=== PATIENT | female | born 1990 | race Two or more races ===

== ENCOUNTER 2024-04-19 23:39 | Emergency (ER) | payer MEDICAID, SELFPAY ==
[2024-04-20 00:04] VITALS: BP 102/69; PULSE 98; RESP 16; TEMP 36.7; O2SAT 97; BMI 20.2
[2024-04-20] MEDS: ONDANSETRON ODT 4 MG TABRAP PO (00:32)
--- NOTE | 2024-04-20 00:40 | PD.EDNV ---
Nausea/Vomit./Diarrhea-RME/HPI General Chief complaint: Abdominal Pain Stated complaint: ABD PAIN,N/V/D Time Seen by Provider: 04/20/24 00:13 Arrival date/time: 04/19/24 23:39 33F with history of asthma presents to ED with 2 days of non-bloody N/V, epigastric pain, and non-bloody diarrhea that started after she ate dinner yesterday. Limitations: no limitations Related Data Home Medications ?Medication ?Instructions ?Recorded ?Confirmed vits no.124-ferrous fum 1 tab PO QDAY 09/01/22 12/20/22 27 mg iron-folic acid 800 mcg tablet ( Vitamin) Previous Rx's ?Medication ?Instructions ?Recorded ondansetron 4 mg disintegrating 4 mg PO Q8H PRN nausea and 04/20/24 tablet vomiting #30 tabs Allergies Allergy/AdvReac Type Severity Reaction Status Date / Time No Known Allergies Allergy Verified 04/19/24 23:40 Review of Systems Review of Systems Systems Reviewed: All systems reviewed, normal except as documented Constitutional Constitutional: Reports system reviewed and no additional complaints, except as documented, Denies fever(s) and Denies headache(s) ENT Ears, Nose, Mouth, and Throat: Denies disequilibrium and Denies headache(s) Cardiovascular Cardiovascular: Reports system reviewed and no additional complaints, except as documented, Denies chest pain and Denies dyspnea Respiratory Respiratory: Reports system reviewed and no additional complaints, except as documented, Denies cough and Denies dyspnea Gastrointestinal Gastrointestinal: Reports system reviewed and no additional complaints, except as documented, Reports as per HPI, Reports abdominal pain, Reports diarrhea, Reports nausea and Reports vomiting Neurologic Neurologic: Reports system reviewed and no additional complaints, except as documented, Denies confusion, Denies disequilibrium and Denies headache(s) Psychiatric Psychiatric: Denies confusion Past Medical History Past Medical History NEUROLOGIC: Negative Neurological Disorders or Seizures CARDIAC: Negative Cardiac Disorders or Congestive Heart Failure RESPIRATORY: Positive Asthma; Negative Chronic Obstructive Pulmonary Disease (COPD) GASTROINTESTINAL: Positive Gastrointestinal Disorders, Ulcer and Gastroesophageal Reflux Disease; Negative Hepatitis or Colorectal Cancer GENITOURINARY: Negative Genitourinary Disorders, Renal Disease or Prostate Cancer REPRODUCTIVE: Positive Previous Pregnancies; Negative Breast Cancer, Endometriosis, Genital Herpes, Gonorrhea, Pelvic Inflammatory Disease, Syphilis, Testicular Cancer or Uterine Prolapse MUSCULOSKELETAL: Negative Musculoskeletal Disorders, Bone Cancer or Carpal Tunnel Syndrome ENDOCRINE: Positive Endocrine Disorders, Hyperthyroidism (NO CURRENT MEDS) and Hypothyroidism; Negative Diabetes Mellitus Type 1 or Diabetes Mellitus Type 2 HEMATOLOGIC: Positive Anemia; Negative Blood Disorders PSYCHO/SOCIAL: Negative Depression, Anxiety or Depression OTHER HISTORY: Negative Autoimmune Disease, Down Syndrome, Developmental Delay, Shingles, Falls, Blood Transfusions, Blood Transfusion Reaction, Anesthesia Reactions, Organ Transplant, Chemotherapy, Radiation Therapy, Hyperbaric Therapy, MRSA, VRSA, Vancomycin-Resistant Enterococci, Human Immunodeficiency Virus (HIV), Chicken Pox, Measles, Mumps, Rubella ([place] Measles), Pertussis, Clostridium Difficile, Breast Cancer, Cervical Cancer, Colorectal Cancer, Lung Cancer, Ovarian Cancer, Prostate Cancer or Testicular Cancer Family History FAMILY HISTORY: Negative Family Psychiatric Problems, Family Respiratory Disorders, Family Cardiac Disorders, Family Gastrointestinal Problems, Family Cancer, Family Surgery or Family Anesthesia Reaction Surgical History SURGICAL: Positive Ear Surgery and Nose Surgery; Negative Cardiac Surgery, Endocrine Surgery, Abdominal Surgery, Nephrectomy, Transurethral Resection, Joint Replacement, Amputation, Open Reduction Internal Fixation, Arthroscopy, Neurologic Surgery, Mastectomy, Lumpectomy, Hysterectomy, Tubal Ligation, Section, Vasectomy or Organ Transplant Social History SMOKING STATUS: Never smoker SECOND HAND EXPOSURE: No ED Exam General Limitations: Present no limitations General appearance: Present alert and in no apparent distress Head Head exam: Present atraumatic Eye Eye exam: Present normal appearance, PERRL and EOMI ENT ENT exam: Present normal exam, normal oropharynx and mucous membranes moist Neck Neck exam: Present normal inspection, full ROM and trachea midline Chest Chest inspection: Present normal inspection and symmetric chest wall rise Respiratory Respiratory exam: Present normal lung sounds bilaterally Cardiovascular Cardiovascular exam: Present regular rate, normal rhythm and normal heart sounds Abdominal Exam Abdominal exam: Present soft and normal bowel sounds Abdominal tenderness: Present epigastrium and mild Extremities Exam Extremities exam: Present normal inspection and full ROM Back Exam Back exam: Present normal inspection and full ROM Neurological Exam Neurological exam: Present alert, oriented X3 and CN II-XII intact Psychiatric Psychiatric exam: Present normal affect and normal mood Skin Skin exam: Present warm, dry, intact and normal color Course Quality Measures none Orders Category Date Time Status Acetaminophen Tab [Tylenol ES Tab] Med 04/20/24 00:14 Discontinued 500 mg PO X1 ONE Famotidine [Pepcid] Med 04/20/24 00:14 Discontinued 40 mg PO X1 ONE Ondansetron Odt [Zofran Odt] Med 04/20/24 00:14 Discontinued 4 mg PO X1 ONE mg Hyd/Al Hyd/Naldo Susp [Maalox Susp] Med 04/20/24 00:14 Discontinued 30 ml PO X1 ONE Vital Signs Vital signs: Vital Signs Temperature 98.1 F 04/20/24 00:04 Pulse Rate 98 04/20/24 00:04 Respiratory Rate 16 04/20/24 00:04 Blood Pressure 102/69 04/20/24 00:04 Pulse Oximetry (%) 97 04/20/24 00:04 Oxygen Delivery Method Room Air 04/20/24 00:04 O2 at 97% on RA and WNLs Nausea/Vomiting/Diarrhea MDM Narrative MDM Narrative:: 33F with history of asthma presents to ED with 2 days of non-bloody N/V, epigastric pain, and non-bloody diarrhea that started after she ate dinner yesterday. Physical exam reveals mild epigastic tenderness. Patient is afebrile, calm, and alert. Likely food poisoning vs viral gastroenteritis. PO challenge passed. Patient data External records reviewed:: [facility] previous records Clinical information provided by:: patient Social determinants that could affect healthcare access:: none Patient has the following chronic illnesses:: asthma How is presenting disease/condition affected by chronic disease/condition?: uneffected by Evaluation data The following diagnostics were reviewed and interpreted by me:: other (specify) (none) Lab and/or radiology exams considered but not ordered:: not ordered Interpretation Summary: n/a Medications / Prescriptions Medications / Prescriptions considered but not ordered:: ordered Medication administrations:: Medication Administration History Discontinued Medications Acetaminophen (Acetaminophen 500 Mg Tablet) 500 mg PO X1 ONE Stop: 04/20/24 00:15 Last Admin: 04/20/24 01:02 Dose: 500 mg Documented By: SALMA Al Hydrox/Mg Hydrox/Simethicone (Mg Hyd/Al Hyd/Naldo (Maalox Reg) Susp 30 Ml Udc) 30 ml PO X1 ONE Stop: 04/20/24 00:15 Last Admin: 04/20/24 01:02 Dose: 30 ml Documented By: SALMA Famotidine (Famotidine 20 Mg Tablet) 40 mg PO X1 ONE Stop: 04/20/24 00:15 Last Admin: 04/20/24 01:03 Dose: 40 mg Documented By: SALMA Comments: medication not scanning, double verified medication with magi cabrera. Ondansetron HCl (Ondansetron Odt 4 Mg Tabrap) 4 mg PO X1 ONE; Protocol Stop: 04/20/24 00:15 Last Admin: 04/20/24 00:32 Dose: 4 mg Documented By: SALMA above Consultations Consultation(s) initiated? (list below): No Diagnosis Nausea Differential Diagnosis: traveler's diarrhea, food poisoning, gastroenteritis, clostridium difficile infection, drug-induced nausea and vomiting and dehydration Most likely diagnosis given after review of the tests above:: food poisoning Admission Indicated Admission indicated?: not indicated Admission Request Was there a request for admission?: No Disposition Plan Disposition Plan: Discharge Discharge Attestation Discharge Attestation: The patient and all family members were given an opportunity to ask questions and understood the discharge instructions. Discharge instructions specifically effects, indications for sooner follow up or return to the emergency department, and the expected course of current diagnosis. Patient condition: Stable Discharge Plan Plan Patient Disposition: HOME (Self Care) Disposition Comment: Stable Prescriptions/Referrals Prescriptions/Med Rec: New ondansetron 4 mg tablet,disintegrating 4 mg PO Q8H PRN (Reason: nausea and vomiting) Qty: 30 0RF No Action Vitamin 27 mg iron- 800 mcg Tablet 1 tab PO QDAY Problem List Clinical Impression: Food poisoning Patient/Caregiver Discharge Instructions Education Materials: ED Food Poisoning (Adult) Additional Instructions: Please follow-up with PCP within 24-48 hours and return immediately if symptoms worsen. Keep hydrated. Advance diet as tolerated. Print Language: Kyrgyz Stand Alone Forms: Patient Portal Info Letter YUAN/CE[facility] Supervising Physician TISHA Supervising Physician: Dr. Nair
[2024-04-20] MEDS: ACETAMINOPHEN 500 MG TABLET PO (01:02)
[2024-04-20] MEDS: MG HYD/AL HYD/SIME (Maalox Reg) SUSP 30 ML UDC PO (01:02)
[2024-04-20] MEDS: FAMOTIDINE 20 MG TABLET 40 MG PO (01:03)
[2024-04-20 01:37] VITALS: BP 95/68; PULSE 95; RESP 17; TEMP 37; O2SAT 98
== END 2024-04-20 01:40 | disposition home or self-care (01) ==
LOC: SERX 04-20 01:26
PROVIDERS: Emergency Provider Emergency Medicine; PCP Family Medicine
DX: A05.9 Bacterial foodborne intoxication, unspecified (principal)
CPT/HCPCS: 99282; Q0162; A9270

== ENCOUNTER 2024-11-28 10:34 | Outpatient (AMB) | payer MEDICAID, SELFPAY ==
[2024-11-28 10:52] VITALS: BP 104/70; PULSE 83; RESP 16; TEMP 36.8; O2SAT 98; BMI 19.7
--- NOTE | 2024-11-28 10:52 | OBCLNT_ITS ---
Vital Signs 11/28/24 10:52 Height 1.68 m Height Method Stated Weight 55.565 kg Weight Measurement Method Standing Scale BMI 19.7 BP 104/70 Blood Pressure Source Automatic Cuff Blood Pressure Location Left Upper Arm Position Sitting Respiration 16 Pulse 83 Pulse Source Monitor Temp 98.2 F Temp Source Oral Pulse Oximetry (%) 98 Oxygen Delivery Method Room Air Allergies/Home Meds Allergies & Medications Allergies No Known Allergies Allergy (Verified 11/28/24 10:53) Medication Reconciliation vits no.124-ferrous fum 27 mg iron-folic acid 800 mcg tablet ( Vitamin) 1 tab PO QDAY 09/01/22 [History Confirmed 11/28/24] ondansetron 4 mg disintegrating tablet 4 mg PO Q8H PRN nausea and vomiting #30 tabs 04/20/24 [Rx Confirmed 11/28/24] doxylamine 10 mg-pyridoxine (vit B6) 10 mg tablet,delayed release (Diclegis) 1 tab PO BID 30 days #60 tabs 11/28/24 [Rx] Intake Visit Data Collection New Patient or Established: Established Patient (seen at [facility] within 3 years) Reason for Visit:: OBC Seen by Clinical Staff ONLY (RN/MA): No Activity Coordinator Required: No Do You Feel Safe at Home: Yes Authorities Contacted: N/A PCP or OBGYN visit in last 3 months: Yes Date of Last PCP or OBGYN visit: 04/20/24 Hx Now: No Are you currently on any form of Control: No Last menstrual period: 10/11/24 Pain Present Currently: No Pain Scale Used: Ortiz-Walden/Numerical Pain scale:: 0 Smoking Status Smoking Status: Never smoker Questionnaires Covid-19 Vaccine Questionnaire Has patient been vacinated for Covid-19 Have you been vacinated for Covid-19: Yes PHQ-9 PHQ-2 Over the last 2 weeks, how often have you been bothered by any of the following problems? 1. Little interest or pleasure in doing things: not at all 2. Feeling down, depressed, or hopeless: not at all Total score: 0 PHQ-9 3. Trouble falling or staying asleep, or sleeping too much: Not at all 4. Feeling tired or having little energy: Not at all 5. Poor appetite or overeating: Not at all 6. Feeling bad about yourself - or that you are a failure or have let yourself or your family down: Not at all 7. Trouble concentrating on things, such as reading the newspaper or watching television: Not at all 8. Moving or speaking so slowly that other people could have noticed? - Or the opposite - being so fidgety or restless that you have been moving around a lot more than usual: not at all 9. Thoughts that you would be better off or of hurting yourself in some way: Not at all Total score: 0 If you checked off any problems, how difficult have these problems made it for you to do your work, take care of things at home, or get along with other people?: not difficult at all Source: Developed by Drs. Lauri Wilkins, Key Kumar, Mejia Magana and colleagues, with an educational renard from [employer]. Depression screen completed yes Social History Living Situation History Marital Status: Lives With: Family Housing: House Tobacco History Smoking Status: Never smoker Second Hand Smoke Exposure: No Alcohol History Alcohol Intake: Never Domestic Abuse History Do You Feel Safe at Home: Yes History of Present Illness HPI Narrative 34-year-old 4 para 3 for OBI. Last period October 11, 2024. This gives a due date July 18, 2025. Patient reports sure dates. She states her periods are usually every month. Patient denies social habits. Denies surgery. Denies chronic illness. Her last Pap 2 years ago. Patient denies allergies. She is happy about the . Denies any signs or symptoms of miscarriage. 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 Patient does complain of some nausea and she like some medication for that. 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: Past Medical History Past Medical History: No Hx Neurological Disorders, Yes Hx Hypothyroidism, Yes Hx Hyperthyroidism (NO CURRENT MEDS), No Hx Breast Cancer, No Hx Cardiac Disorders, No Hx Blood Disorders, Yes Hx Anemia, Yes Hx Gastrointestinal Disorders, No Hx Renal Disease, No Hx Diabetes Mellitus Type 1, No Hx Diabetes Mellitus Type 2, No Hx Tubal Ligation and No Hx Hysterectomy OB Initial Visit OB Flowsheet OB Flowsheet Initial Weight: Not Recorded Date -?-?-?-?-?-?-?-?-?-?-?-?- EGA Weight BP Alb Glu CTX Pres Fundal ht FHR Mov Dilation Station Effacement Hx Notes Visit Note 11/28/24 -?-?-?-?-?-?-?-?-?-?-?-?- 6w 6d 55.565 kg 104/70 absent unknown 7 ab sent Renuka is a 36-year-old 4 para 3 for OBI. Her last period October 11, 2024. An estimated due date based on that is July 18, 2025. Patient denies complaints of miscarriage. Denies any bleeding, cramping, leaking. She does have increased complaints of nausea. And last Pap 2 years ago Schedule ultrasound at [facility] for viability. Discussed comfort measures for increased nausea. I gave patient a prescription for Diclegis to be taken twice a day. Discussed SAB precautions. We did an OB panel and A1c today. And then patient is to return in 3 weeks for OB check Menstrual History Menstrual reliability: definite Flow: normal Menstrual regularity: regular Monthly: Yes Age at menarche: 17 On control pills at conception: No OB History : 4 Para: 4 Hx # Pregnancies: 0 Hx Total # of Abortions (Spontaneous & Elective): 0 # of Living Children: 3 Delivery History 1st : Child's name: NA date: 01/16/15 sex: male Delivery type: vaginal History of depression before or after : No 2nd : Child's name: NA date: 05/03/17 sex: male Delivery type: vaginal History of depression before or after : No 3rd : Child's name: NA date: 12/21/22 sex: male Delivery type: vaginal Infection History & Risk Evaluation History of STDs: none HIV risk evaluation: low risk Hepatitis B risk evaluation: low risk Patient or partner has history of Genital Herpes: No Varicella/chicken pox status: immunized Genetic Screening & History Genetic Screening/Teratology Counseling - Includes patient, baby's father, or anyone in either family with: 1. Patient's age 35 years or older as of estimated date of delivery: No 2. Thalassemia (Norwegian, Haitian, Mediterranean, or Background); MCV less than 80: No 3. Neural Tube Defect (Meningomyelocele, Spina Bifida, or Anencephaly): No 4. Congenital Heart Defect: No 5. Down Syndrome: No 6. Julio Cesar-Sachs (Ashkenazi Jehovah'S Witness, C[place]un, [place]): No 7. [place] Disease (Ashkenazi Jehovah'S Witness): No 8. Familial Dysautonomia (Ashkenazi Jehovah'S Witness): No 9. Sickle Cell Disease or Trait (): No 10. Hemophilia or other blood disorders: No 11. Muscular Dystrophy: No 12. Cystic Fibrosis: No 13. [place]'s Chorea: No 14. Mental Retardation/Autism: No 15. Other inherited genetic or chromosomal disorder: No 16. Maternal Metabolic Disorder (EG,TYPE 1 Diabetes, PKU): No 17. Patient or baby's father had a child with defects not listed above: No 18. Recurrent loss or a stillbirth: No 19. Medications (including supplements, vitamins, herbs or otc drugs)/illicit/recreational drugs/alcohol since last menstrual period: No 20. Any other: No Infection History 1. Live with someone with TB or exposed to TB: No 2. Rash or viral illness since last menstrual period: No 3. Hepatitis B,C: No Other (see comments) Source: [employer] Review of Systems Review of Systems Systems Reviewed: All systems reviewed, normal except as documented Exam General Limitations: no limitations General Appearance: alert, in no apparent distress, comfortable, cooperative, healthy appearing, well developed and well groomed Head Head exam: atraumatic, normocephalic and normal inspection Neck Neck exam: Present normal inspection, full ROM and trachea midline Chest Chest inspection: Present normal inspection and symmetric chest wall rise Resp Respiratory exam: Present normal lung sounds bilaterally Card Cardiovascular exam: Present regular rate, normal rhythm and normal heart sounds Abdominal Abdominal exam: Present soft and normal bowel sounds Psych Psychiatric exam: Present normal affect and normal mood Office Procedures OBC Clinic LOC & Office Proc's Nursing/Assessment Patient Status: Established Patient OB Clinic Nursing Assessment: Medication Reconciliation, Update PMH in EMR and Vital Signs OB Clinic Coordination of Care: Education Complex Pt/Fam, Consent,records obtained, informed consent, Lab and Imaging orders, Results/Orders obtained and Staff clarify orders Special Needs: Heart tones Established Patient Charge Established Patient Point Assignment: 115 Established Patient Point Charge: EP Level 3 (80-115) Assessment & Plan Diagnosis / Problem List (1) Encounter for supervision of high risk in first trimester, antepartum: Status: Acute Plan Diclegis to take twice a day. Discussed comfort measures for nausea and vomiting. I discussed SAB precautions. OB panel with hemoglobin A1c today. And we ordered ultrasound at [facility] for dating and viability. Return in 3 weeks for OB check and NIPT Additional Plan Follow Up: 3 Weeks (obc)
== END 2024-11-28 11:17 | disposition home or self-care (01) ==
LOC: HODSOBC 10:34
PROVIDERS: Supervising Provider Advanced Practice Midwife; Visit Provider Advanced Practice Midwife
DX: O09.91 Supervision of high risk pregnancy, unspecified, first trimester (principal); Z3A.01 Less than 8 weeks gestation of pregnancy
CPT/HCPCS: 99213; G0463

== ENCOUNTER 2024-12-19 11:05 | Outpatient (AMB) | payer MEDICAID, SELFPAY ==
--- NOTE | 2024-12-19 11:24 | OBCLNT_ITS ---
Vital Signs 12/19/24 11:30 Height 1.68 m Height Method Stated Weight 57.323 kg Weight Measurement Method Standing Scale BMI 20.2 BP 102/62 Blood Pressure Source Automatic Cuff Blood Pressure Location Right Upper Arm Position Sitting Respiration 16 Pulse 70 Pulse Source Monitor Temp 98.2 F Temp Source Temporal Artery Scan Pulse Oximetry (%) 98 Oxygen Delivery Method Room Air Allergies/Home Meds Allergies & Medications Allergies No Known Allergies Allergy (Verified 12/19/24 11:31) Medication Reconciliation vits no.124-ferrous fum 27 mg iron-folic acid 800 mcg tablet ( Vitamin) 1 tab PO QDAY 09/01/22 [History Confirmed 12/19/24] ondansetron 4 mg disintegrating tablet 4 mg PO Q8H PRN nausea and vomiting #30 tabs 04/20/24 [Rx Confirmed 12/19/24] doxylamine 10 mg-pyridoxine (vit B6) 10 mg tablet,delayed release (Diclegis) 1 tab PO BID 30 days #60 tabs 11/28/24 [Rx Confirmed 12/19/24] nitrofurantoin monohydrate/macrocrystals 100 mg capsule (Macrobid) 100 mg PO BID 7 days #14 caps 12/19/24 [Rx] Intake Visit Data Collection New Patient or Established: Established Patient (seen at [facility] within 3 years) Reason for Visit:: OBC Seen by Clinical Staff ONLY (RN/MA): No Clinical Material Handler Required: No Do You Feel Safe at Home: Yes Authorities Contacted: N/A PCP or OBGYN visit in last 3 months: Yes Date of Last PCP or OBGYN visit: 11/28/24 Hx Now: Yes Are you currently on any form of Control: No Pain Present Currently: No Pain Scale Used: Ortiz-Walden/Numerical Pain scale:: 0 Smoking Status Smoking Status: Never smoker Immunizations Flu Vaccine in the Last 12 Months: No Questionnaires Covid-19 Vaccine Questionnaire Has patient been vacinated for Covid-19 Have you been vacinated for Covid-19: Yes PHQ-9 PHQ-2 Over the last 2 weeks, how often have you been bothered by any of the following problems? 1. Little interest or pleasure in doing things: not at all 2. Feeling down, depressed, or hopeless: not at all Total score: 0 PHQ-9 3. Trouble falling or staying asleep, or sleeping too much: Not at all 4. Feeling tired or having little energy: Not at all 5. Poor appetite or overeating: Not at all 6. Feeling bad about yourself - or that you are a failure or have let yourself or your family down: Not at all 7. Trouble concentrating on things, such as reading the newspaper or watching television: Not at all 8. Moving or speaking so slowly that other people could have noticed? - Or the opposite - being so fidgety or restless that you have been moving around a lot more than usual: not at all 9. Thoughts that you would be better off or of hurting yourself in some way: Not at all Total score: 0 If you checked off any problems, how difficult have these problems made it for you to do your work, take care of things at home, or get along with other people?: not difficult at all Source: Developed by Drs. Lauri Wilkins, Key Kumar, Mejia Magana and colleagues, with an educational renard from [employer]. 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-?-?-?-?-?-?-?-?-?-?-?- 6w 6d 55.565 kg 104/70 absent unknown 7 ab sent Renuka is a 36-year-old 4 para 3 for OBI. Her last period October 11, 2024. An estimated due date based on that is July 18, 2025. Patient denies complaints of miscarriage. Denies any bleeding, cramping, leaking. She does have increased complaints of nausea. And last Pap 2 years ago Schedule ultrasound at [facility] for viability. Discussed comfort measures for increased nausea. I gave patient a prescription for Diclegis to be taken twice a day. Discussed SAB precautions. We did an OB panel and A1c today. And then patient is to return in 3 weeks for OB check 12/19/24 -?-?-?-?-?-?-?-?-?-?-?-?- 9w 6d 57.323 kg 102/62 absent unknown 10 145 absent No OB complaints. Continued nausea and vomiting. Patient states that the Zofran is helping her. Denies leaking bleeding or contractions NIPT and carrier screens will be done on December 21. Referral made to Dr. Skaggs for NT scan and anatomy scan. Discussed SAB precautions and comfort measures for nausea and return in 4 weeks NIPT and carrier screens kalani l be done on December 21. Referral made to Dr. Skaggs for NT scan and anatomy scan. Discussed SAB precautions and comfort measures for nausea and return in 4 weeks. macrobid 100 x7 LILIAN Calculator Estimated Delivery Date Method Current WG Current Estimate 07/18/25 LMP (Certain) 9w 6d Notes Visit Date: 12/19/24 Last Updated by: Kitty Colorado CNM ob panel: B+,abs-, rpr;;nr, rub non imm, hbsag-,hiv-,hc-, GC/CT-. + uti: rx macrobid 100 bid, comfort [id number] Visit Date: 11/28/24 Last Updated by: Kitty Colorado CNM 34 yo . LMP: 10/11/24. EDC: 07/18/25 Office Procedures OBC Clinic LOC & Office Proc's Nursing/Assessment Patient Status: Established Patient OB Clinic Nursing Assessment: Medication Reconciliation, Update PMH in EMR and Vital Signs OB Clinic Coordination of Care: Complex Care and Chronic Disease 1-5, Education Complex Pt/Fam, Consent,records obtained, informed consent, Lab and Imaging orders, Results/Orders obtained and Staff clarify orders Special Needs: Heart tones Established Patient Charge Established Patient Point Assignment: 140 Established Patient Point Charge: EP Level 4 (120-155) Assessment & Plan Diagnosis / Problem List (1) Encounter for supervision of high risk in first trimester, antepartum: Status: Acute Plan Macrobid 100 p.o. twice daily x 7 for UTI. Increase fluids and comfort measures. NIPT, carrier screen today. Schedule with M Dr. Skaggs for NT scan and anatomy scan. Discussed SAB precautions. Return in 4 weeks OB check Additional Plan Follow Up: 4 Weeks (obc)
[2024-12-19 11:30] VITALS: BP 102/62; PULSE 70; RESP 16; TEMP 36.8; O2SAT 98; BMI 20.2
== END 2024-12-19 12:19 | disposition home or self-care (01) ==
LOC: HODSOBC 11:05
PROVIDERS: Supervising Provider Advanced Practice Midwife; Visit Provider Advanced Practice Midwife
DX: O09.891 Supervision of other high risk pregnancies, first trimester (principal); O23.41 Unspecified infection of urinary tract in pregnancy, first trimester; Z3A.09 9 weeks gestation of pregnancy
CPT/HCPCS: 99214; G0463

== ENCOUNTER 2025-01-15 09:02 | Outpatient (AMB) | payer MEDICAID, SELFPAY ==
--- NOTE | 2025-01-15 09:04 | AMB.OBPNC ---
Vital Signs 01/15/25 09:08 Height 1.68 m Height Method Stated Weight 55.962 kg Weight Measurement Method Standing Scale BMI 19.8 BP 101/70 Blood Pressure Source Automatic Cuff Blood Pressure Location Left Upper Arm Position Sitting Respiration 18 Pulse 88 Pulse Source Monitor Temp 97.2 F Temp Source Oral Pulse Oximetry (%) 98 Oxygen Delivery Method Room Air Allergies/Home Meds Allergies & Medications Allergies No Known Allergies Allergy (Verified 01/15/25 09:11) Medication Reconciliation vits no.124-ferrous fum 27 mg iron-folic acid 800 mcg tablet ( Vitamin) 1 tab PO QDAY 09/01/22 [History Confirmed 01/15/25] ondansetron 4 mg disintegrating tablet 4 mg PO Q8H PRN nausea and vomiting #30 tabs 04/20/24 [Rx Confirmed 01/15/25] doxylamine 10 mg-pyridoxine (vit B6) 10 mg tablet,delayed release (Diclegis) 1 tab PO BID 30 days #60 tabs 11/28/24 [Rx Confirmed 01/15/25] Immunizations Immunizations Flu Vaccine in the Last 12 Months: No Flu Vaccine Exclusion Criteria: No Exclusion Criteria Care OB Visit Log OB Flowsheet Initial Weight: Not Recorded Date <del>?</del> EGA Weight BP Alb Glu CTX Pres Fundal ht FHR Mov Dilation Station Effacement Hx Notes Visit Note 11/28/24 <del>?</del> 6w 6d 55.565 kg 104/70 absent unknown 7 absent Renuka is a 36-year-old 4 para 3 for OBI. Her last period October 11, 2024. An estimated due date based on that is July 18, 2025. Patient denies complaints of miscarriage. Denies any bleeding, cramping, leaking. She does have increased complaints of nausea. And last Pap 2 years ago Schedule ultrasound at [facility] for viability. Discussed comfort measures for increased nausea. I gave patient a prescription for Diclegis to be taken twice a day. Discussed SAB precautions. We did an OB panel and A1c today. And then patient is to return in 3 weeks for OB check 12/19/24 <del>?</del> 9w 6d 57.323 kg 102/62 absent unknown 10 145 absent No OB complaints. Continued nausea and vomiting. Patient states that the Zofran is helping her. Denies leaking bleeding or contractions NIPT and carrier screens will be done on December 21. Referral made to Dr. Skaggs for NT scan and anatomy scan. Discussed SAB precautions and comfort measures for nausea and return in 4 weeks NIPT and carrier screens will be done on December 21. Referral made to Dr. Skaggs for NT scan and anatomy scan. Discussed SAB precautions and comfort measures for nausea and return in 4 weeks. macrobid 100 x7 LILIAN Calculator Estimated Delivery Date Method Current WG Current Estimate 07/18/25 LMP (Certain) 13w 5d Notes Visit Date: 12/19/24 Last Updated by: Kitty Colorado CNM ob panel: B+,abs-, rpr;;nr, rub non imm, hbsag-,hiv-,hc-, GC/CT-. + uti: rx macrobid 100 bid, comfort /36/243 Visit Date: 11/28/24 Last Updated by: Kitty Colorado CNM 34 yo . LMP: 10/11/24. EDC: 07/18/25 Office Procedures OBC Clinic LOC & Office Proc's Nursing/Assessment Patient Status: Established Patient OB Clinic Nursing Assessment: Medication Reconciliation, Update PMH in EMR and Vital Signs OB Clinic Coordination of Care: Consent,records obtained, informed consent, Education Simp Pt/Fam, Lab and Imaging orders, Results/Orders obtained and Staff clarify orders Special Needs: Heart tones Established Patient Charge Established Patient Point Assignment: 110 Established Patient Point Charge: EP Level 3 (80-115) Assessment & Plan Diagnosis / Problem List (1) Encounter for supervision of high risk in first trimester, antepartum: Status: Acute Plan Discussed SAB precautions. aFP next visit. Comfort measures for cough cold and nausea discussed. Return in 4 weeks OB check and MFM appointment pending
[2025-01-15 09:08] VITALS: BP 101/70; PULSE 88; RESP 18; TEMP 36.2; O2SAT 98; BMI 19.8
== END 2025-01-15 09:28 | disposition home or self-care (01) ==
LOC: HODSOBC 09:02
PROVIDERS: Supervising Provider Advanced Practice Midwife; Visit Provider Advanced Practice Midwife
DX: O09.891 Supervision of other high risk pregnancies, first trimester (principal); O99.891 Other specified diseases and conditions complicating pregnancy; R05.9 Cough, unspecified; R11.0 Nausea; Z3A.13 13 weeks gestation of pregnancy
CPT/HCPCS: 99213; G0463

== ENCOUNTER 2025-02-12 10:05 | Outpatient (AMB) | payer MEDICAID, SELFPAY ==
[2025-02-12 10:15] VITALS: BP 103/69; PULSE 102; RESP 18; TEMP 36.7; O2SAT 97; BMI 20.4
--- NOTE | 2025-02-12 10:15 | OBCLNT_ITS ---
Vital Signs 02/12/25 10:15 Height 1.68 m Height Method Stated Weight 57.72 kg Weight Measurement Method Standing Scale BMI 20.4 BP 103/69 Blood Pressure Source Automatic Cuff Blood Pressure Location Right Upper Arm Position Sitting Respiration 18 Pulse 102 H Pulse Source Monitor Temp 98.1 F Temp Source Temporal Artery Scan Pulse Oximetry (%) 97 Oxygen Delivery Method Room Air Allergies/Home Meds Allergies & Medications Allergies No Known Allergies Allergy (Verified 02/12/25 10:16) Medication Reconciliation vits no.124-ferrous fum 27 mg iron-folic acid 800 mcg tablet ( Vitamin) 1 tab PO QDAY 09/01/22 [History Confirmed 02/12/25] ondansetron 4 mg disintegrating tablet 4 mg PO Q8H PRN nausea and vomiting #30 tabs 04/20/24 [Rx Confirmed 02/12/25] doxylamine 10 mg-pyridoxine (vit B6) 10 mg tablet,delayed release (Diclegis) 1 tab PO BID 30 days #60 tabs 11/28/24 [Rx Confirmed 02/12/25] Immunizations Immunizations Flu Vaccine in the Last 12 Months: No Flu Vaccine Exclusion Criteria: No Exclusion Criteria Care OB Visit Log OB Flowsheet Initial Weight: Not Recorded Date -?-?-?-?-?-?-?-?-?-?-?-?- EGA Weight BP Alb Glu CTX Pres Fundal ht FHR Mov Dilation Station Effac ement Hx Notes Visit Note 11/28/24 -?-?-?-?-?-?-?-?-?-?-?-?- 6w 6d 55.565 kg 104/70 absent unknown 7 ab sent Renuka is a 36-year-old 4 para 3 for OBI. Her last period October 11, 2024. An estimated due date based on that is July 18, 2025. Patient denies complaints of miscarriage. Denies any bleeding, cramping, leaking. She does have increased complaints of nausea. And last Pap 2 years ago Schedule ultrasound at [facility] for viability. Discussed comfort measures for increased nausea. I gave patient a prescription for Diclegis to be taken twice a day. Discussed SAB precautions. We did an OB panel and A1c today. And then patient is to return in 3 weeks for OB check 12/19/24 -?-?-?-?-?-?-?-?-?-?-?-?- 9w 6d 57.323 kg 102/62 absent unknown 10 145 absent No OB complaints. Continued nausea and vomiting. Patient states that the Zofran is helping her. Denies leaking bleeding or contractions NIPT and carrier screens will be done on December 21. Referral made to Dr. Skaggs for NT scan and anatomy scan. Discussed SAB precautions and comfort measures for nausea and return in 4 weeks NIPT and carrier screens kalani l be done on December 21. Referral made to Dr. Skaggs for NT scan and anatomy scan. Discussed SAB precautions and comfort measures for nausea and return in 4 weeks. macrobid 100 x7 01/15/25 -?-?-?-?-?-?-?-?-?-?-?-?- 13w 5d 55.962 kg 101/70 absent unknown 13 145 absent Light movement positive. Last nausea and vomiting present. Denies SAB complaints aFP next visit. Discussed SAB precautions. Maternal- medicine appointment with Dr. Skaggs pending in 4 weeks. Return in 4 weeks OB check 02/12/25 -?-?-?-?-?-?-?-?-?-?-?-?- 17w 5d 57.72 kg 103/69 absent unknown 17 145 absent retained placenta 2 of the . + fm, no sab complaints. mfm appointment pending aFP. Follow-up with MFM appointment. Discussed SAB precautions patient will start 12 what daily. Return in 4 weeks OB check LILIAN Calculator Estimated Delivery Date Method Current WG Current Estimate 07/18/25 LMP (Certain) 17w 5d Notes Visit Date: 01/15/25 Last Updated by: Kitty Colorado CNM NIPT-/girl, CF-,SMA- Visit Date: 12/19/24 Last Updated by: Kitty Colorado CNM ob panel: B+,abs-, rpr;;nr, rub non imm, hbsag-,hiv-,hc-, GC/CT-. + uti: rx macrobid 100 bid, comfort [id number] Visit Date: 11/28/24 Last Updated by: Kitty Colorado CNM 34 yo . LMP: 8/14/25. EDC: 07/18/25 Office Procedures OBC Clinic LOC & Office Proc's Nursing/Assessment Patient Status: Established Patient OB Clinic Nursing Assessment: Medication Reconciliation, Update PMH in EMR and Vital Signs OB Clinic Coordination of Care: Complex Care and Chronic Disease 1-5, Education Complex Pt/Fam, Consent,records obtained, informed consent, Lab and Imaging orders, Results/Orders obtained and Staff clarify orders Special Needs: Heart tones Established Patient Charge Established Patient Point Assignment: 140 Established Patient Point Charge: EP Level 4 (120-155) Assessment & Plan Diagnosis / Problem List (1) Encounter for supervision of high risk in second trimester, antepartum: Status: Acute Plan aFP. Follow-up with Dr. Skaggs's office for MFM referral. Discussed SAB precautions. Continue prenatals. Discussed concerns about retained placenta. And return in 4 weeks OB check Additional Plan Follow Up: 4 Weeks (obc)
== END 2025-02-12 10:39 | disposition home or self-care (01) ==
LOC: HODSOBC 10:05
PROVIDERS: Supervising Provider Advanced Practice Midwife; Visit Provider Advanced Practice Midwife
DX: O09.92 Supervision of high risk pregnancy, unspecified, second trimester (principal); Z3A.17 17 weeks gestation of pregnancy
CPT/HCPCS: 99214; G0463